=== PATIENT | female | born 1960 | race Caucasian/White ===

== ENCOUNTER 2019-06-17 15:39 | Emergency (ER) | payer OTHER ==
[2019-06-17] MEDS ORDERED: Sodium Chloride 0.9% 10 ML Syringe FLUSH PRN ×2 (15:47→21:21)
--- NOTE | 2019-06-17 15:49 | EDM.PDOC ---
<Tracy Mitchell - Last Filed: 06/17/19 17:01> ED HPI GENERAL MEDICAL PROBLEM - General Chief Complaint: Headache Stated Complaint: STROKE SYMPTOMS Time Seen by Provider: 06/17/19 15:49 Source of Information: Reports: Patient History Limitations: Reports: No Limitations - History of Present Illness INITIAL COMMENTS - FREE TEXT/NARRATIVE: pt has a severe headache on the rt side. She has had a past history of migraines but she has not any for a long time. This started yesterday and has gotten progrssively worse. Her vision is ok. She is nauseated but she has not vomited. Onset: Other ( started last nite. ) Duration: Hour(s): Location: Reports: Head Associated Symptoms: Reports: Headaches, Nausea/Vomiting, Other (pt developed the headache last nite and it has gotten worse through the day. She is nauseated but has not vomited. ) Right Headache Pain Score (Numeric/FACES): 10 - Related Data Allergies Allergy/AdvReac Type Severity Reaction Status Date / Time No Known Allergies Allergy Verified 06/17/19 15:53 Home Meds: Home Meds NK [No Known Home Meds] 06/17/19 [History] ED ROS GENERAL - Review of Systems Review Of Systems: See Below Constitutional: Reports: No Symptoms HEENT: Reports: Other (pt arrived with a very severe rt sided headache. ) Respiratory: Reports: No Symptoms Cardiovascular: Reports: No Symptoms Endocrine: Reports: No Symptoms GI/Abdominal: Reports: Nausea Musculoskeletal: Reports: No Symptoms Skin: Reports: No Symptoms Neurological: Reports: Headache, Other (pt is nauseated. ) Psychiatric: Reports: No Symptoms Hematologic/Lymphatic: Reports: No Symptoms - Physical Exam Exam: See Below Text/Narrative:: pt arrived with a severe rt sided headache over the rt eye. She is nauseated. This did staert last nite. Exam Limited By: No Limitations General Appearance: Alert, Anxious, Moderate Distress, Other (pupils are equal and reactive. ) Ears: Normal TMs Nose: Normal Inspection Throat/Mouth: Normal Inspection Head Exam: Atraumatic Neck: Normal Inspection Respiratory/Chest: No Respiratory Distress Cardiovascular: Regular Rate, Rhythm GI/Abdominal: Soft, Non-Tender (Female) Exam: Deferred Rectal (Female) Exam: Deferred Neuro Exam (Abbreviated): Alert, Oriented, Normal Cognition, Other ( very uncomfortable appearing. ) Back Exam: Normal Inspection Extremities: Normal Inspection Psychiatric: Anxious Course - Vital Signs Last Recorded V/S: Last Vital Signs Temp 100.4 F 06/17/19 20:14 Pulse 71 06/17/19 20:33 Resp 16 06/17/19 18:31 BP 96/42 L 06/17/19 20:33 Pulse Ox 95 06/17/19 20:33 - Orders/Labs/Meds Orders: Active Orders 24 hr Category Date Time Status CULTURE CSF + SMEAR [RM] Routine Lab 06/17/19 20:05 Results Iopamidol [Isovue-370 (76%)] Med 06/17/19 21:30 Active 100 ml IV . DIRECTED Sodium Chloride 0.9% [Normal Saline] 1,000 ml Med 06/17/19 16:45 Active IV ASDIRECTED Sodium Chloride 0.9% [Normal Saline] 1,000 ml Med 06/17/19 20:00 Active IV ASDIRECTED Sodium Chloride 0.9% [Normal Saline] 80 ml Med 06/17/19 21:30 Active IV ASDIRECTED Sodium Chloride 0.9% [Saline Flush] Med 06/17/19 15:47 Active 10 ml FLUSH ASDIRECTED PRN Sodium Chloride 0.9% [Saline Flush] Med 06/17/19 21:21 Active 10 ml FLUSH ASDIRECTED PRN Saline Lock Insert [OM.PC] Routine Oth 06/17/19 15:47 Ordered Medication Orders Sodium Chloride (Normal Saline) 1,000 mls @ 999 mls/hr IV ASDIRECTED NEHEMIAH Last Admin: 06/17/19 16:53 Dose: 999 mls/hr Sodium Chloride (Normal Saline) 1,000 mls @ 250 mls/hr IV ASDIRECTED NEHEMIAH Last Admin: 06/17/19 19:40 Dose: 250 mls/hr Sodium Chloride (Normal Saline) 80 mls @ 3 mls/sec IV ASDIRECTED NEHEMIAH Last Admin: 06/17/19 21:46 Dose: 3 mls/sec Iopamidol (Isovue-370 (76%)) 100 ml IV . DIRECTED NEHEMIAH Last Admin: 06/17/19 21:46 Dose: 100 ml Sodium Chloride (Saline Flush) 10 ml FLUSH ASDIRECTED PRN PRN Reason: Keep Vein Open Last Admin: 06/17/19 15:52 Dose: 10 ml Sodium Chloride (Saline Flush) 10 ml FLUSH ASDIRECTED PRN PRN Reason: Keep Vein Open Last Admin: 06/17/19 21:46 Dose: 10 ml Labs: Laboratory Tests 06/17/19 06/17/19 06/17/19 Range/Units 15:48 15:48 20:05 WBC 7.8 (4.5-11.0) K/uL RBC 5.11 (3.30-5.50) M/uL Hgb 15.7 H (12.0-15.0) g/dL Hct 45.9 (36.0-48.0) % MCV 90 (80-98) fL MCH 31 (27-31) pg MCHC 34 (32-36) % Plt Count 359 (150-400) K/uL Neut % (Auto) 43 (36-66) % Lymph % (Auto) 45 H (24-44) % Gulf % (Auto) 9 H (2-6) % Eos % (Auto) 3 (2-4) % Baso % (Auto) 1 (0-1) % Sodium (140-148) mmol/L Potassium (3.6-5.2) mmol/L Chloride (100-108) mmol/L Carbon Dioxide (21-32) mmol/L Anion Gap (5.0-14.0) mmol/L BUN (7-18) mg/dL Creatinine (0.6-1.0) mg/dL Est Cr Clr Drug Dosing mL/min Estimated GFR (MDRD) (>60) BUN/Creatinine Ratio Glucose (74-106) mg/dL Calcium (8.5-10.1) mg/dL Total Bilirubin (0.2-1.0) mg/dL AST (15-37) U/L ALT (12-78) U/L Alkaline Phosphatase (46-116) U/L Total Protein (6.4-8.2) g/dL Albumin (3.4-5.0) g/dL Globulin (2.3-3.5) g/dL Albumin/Globulin Ratio (1.2-2.2) CSF Tube Number CSF Volume mls CSF Appearance (CLEAR) CSF Color (COLORLESS) CSF WBC (0-5) /ul CSF RBC (0-0) /ul CSF Mononuclear Cells (54-100) % CSF Polymorphonuclear (0-7) % CSF Diff Comment CSF Glucose 58 (40-70) mg/dL CSF Total Protein 36.1 (15-45) mg/dL 06/17/19 06/17/19 06/17/19 Range/Units 20:05 21:03 21:03 WBC (4.5-11.0) K/uL RBC (3.30-5.50) M/uL Hgb (12.0-15.0) g/dL Hct (36.0-48.0) % MCV (80-98) fL MCH (27-31) pg MCHC (32-36) % Plt Count (150-400) K/uL Neut % (Auto) (36-66) % Lymph % (Auto) (24-44) % Gulf % (Auto) (2-6) % Eos % (Auto) (2-4) % Baso % (Auto) (0-1) % Sodium (140-148) mmol/L Potassium (3.6-5.2) mmol/L Chloride (100-108) mmol/L Carbon Dioxide (21-32) mmol/L Anion Gap (5.0-14.0) mmol/L BUN (7-18) mg/dL Creatinine (0.6-1.0) mg/dL Est Cr Clr Drug Dosing mL/min Estimated GFR (MDRD) (>60) BUN/Creatinine Ratio Glucose (74-106) mg/dL Calcium (8.5-10.1) mg/dL Total Bilirubin (0.2-1.0) mg/dL AST (15-37) U/L ALT (12-78) U/L Alkaline Phosphatase (46-116) U/L Total Protein (6.4-8.2) g/dL Albumin (3.4-5.0) g/dL Globulin (2.3-3.5) g/dL Albumin/Globulin Ratio (1.2-2.2) CSF Tube Number 3 1 2 CSF Volume mls CSF Appearance Clear Clear Clear (CLEAR) CSF Color Colorless Colorless Colorless (COLORLESS) CSF WBC 0 4 1 (0-5) /ul CSF RBC 0 13 H 3 H (0-0) /ul CSF Mononuclear Cells 0 L 0 L 0 L (54-100) % CSF Polymorphonuclear 0 100 H 100 H (0-7) % CSF Diff Comment CSF Glucose (40-70) mg/dL CSF Total Protein (15-45) mg/dL 06/17/19 Range/Units 21:04 WBC (4.5-11.0) K/uL RBC (3.30-5.50) M/uL Hgb (12.0-15.0) g/dL Hct (36.0-48.0) % MCV (80-98) fL MCH (27-31) pg MCHC (32-36) % Plt Count (150-400) K/uL Neut % (Auto) (36-66) % Lymph % (Auto) (24-44) % Gulf % (Auto) (2-6) % Eos % (Auto) (2-4) % Baso % (Auto) (0-1) % Sodium (140-148) mmol/L Potassium (3.6-5.2) mmol/L Chloride (100-108) mmol/L Carbon Dioxide (21-32) mmol/L Anion Gap (5.0-14.0) mmol/L BUN (7-18) mg/dL Creatinine (0.6-1.0) mg/dL Est Cr Clr Drug Dosing mL/min Estimated GFR (MDRD) (>60) BUN/Creatinine Ratio Glucose (74-106) mg/dL Calcium (8.5-10.1) mg/dL Total Bilirubin (0.2-1.0) mg/dL AST (15-37) U/L ALT (12-78) U/L Alkaline Phosphatase (46-116) U/L Total Protein (6.4-8.2) g/dL Albumin (3.4-5.0) g/dL Globulin (2.3-3.5) g/dL Albumin/Globulin Ratio (1.2-2.2) CSF Tube Number 4 CSF Volume mls CSF Appearance Clear (CLEAR) CSF Color Colorless (COLORLESS) CSF WBC 0 (0-5) /ul CSF RBC 0 (0-0) /ul CSF Mononuclear Cells 0 L (54-100) % CSF Polymorphonuclear 0 (0-7) % CSF Diff Comment CSF Glucose (40-70) mg/dL CSF Total Protein (15-45) mg/dL Meds: Medications Generic Name Dose Route Start Last Admin Trade Name Freq PRN Reason Stop Dose Admin Sodium Chloride 1,000 mls @ 999 mls/hr 06/17/19 16:45 06/17/19 16:53 Normal Saline IV 999 mls/hr ASDIRECTED NEHEMIAH Administration Sodium Chloride 1,000 mls @ 250 mls/hr 06/17/19 20:00 06/17/19 19:40 Normal Saline IV 250 mls/hr ASDIRECTED NEHEMIAH Administration Sodium Chloride 80 mls @ 3 mls/sec 06/17/19 21:30 06/17/19 21:46 Normal Saline IV 3 mls/sec ASDIRECTED NEHEMIAH Administration Iopamidol 100 ml 06/17/19 21:30 06/17/19 21:46 Isovue-370 (76%) IV 100 ml . DIRECTED NEHEMIAH Administration Sodium Chloride 10 ml 06/17/19 15:47 06/17/19 15:52 Saline Flush FLUSH 10 ml ASDIRECTED PRN Administration Keep Vein Open Sodium Chloride 10 ml 06/17/19 21:21 06/17/19 21:46 Saline Flush FLUSH 10 ml ASDIRECTED PRN Administration Keep Vein Open Discontinued Medications Generic Name Dose Route Start Last Admin Trade Name Freq PRN Reason Stop Dose Admin Diphenhydramine HCl 50 mg 06/17/19 16:40 06/17/19 16:54 Benadryl IVPUSH 06/17/19 16:41 50 mg ONETIME ONE Administration Hydromorphone HCl 0.5 mg 06/17/19 16:00 06/17/19 16:07 Dilaudid IVPUSH 06/17/19 16:01 0.5 mg ONETIME ONE Administration Hydromorphone HCl 1 mg 06/17/19 18:11 06/17/19 18:24 Dilaudid IVPUSH 06/17/19 18:12 1 mg ONETIME ONE Administration Ketorolac Tromethamine 30 mg 06/17/19 16:40 06/17/19 16:55 Toradol IVPUSH 06/17/19 16:41 30 mg ONETIME ONE Administration Lorazepam 0.5 mg 06/17/19 16:41 06/17/19 16:56 Ativan IVPUSH 06/17/19 16:42 0.5 mg ONETIME ONE Administration Ondansetron HCl 4 mg 06/17/19 15:52 06/17/19 15:56 Zofran IVPUSH 06/17/19 15:53 4 mg ONETIME ONE Administration - Re-Assessments/Exams Free Text/Narrative Re-Assessment/Exam: 06/17/19 17:01 lab work appears normal . She had a cat scan of the head since this was the worst headache she ever had. The cat scan proved to be normal. Departure - Departure Disposition: Home, Self-Care 01 Clinical Impression: Headache Qualifiers: Headache type: unspecified Headache chronicity pattern: acute headache Intractability: not intractable Qualified Code(s): R51 - Headache - Discharge Information Instructions: General Headache Without Cause, [id number] Referrals: PCP,None [Primary Care Provider] - Forms: ED Department Discharge Additional Instructions: Use Percocet as needed for pain control please followup with your primary care provider in 2-3 days if not better, please call return to the emergency department with worsening of symptoms. Sepsis Event Note - Focused Exam Vital Signs: Vital Signs Temp Pulse Resp BP Pulse Ox 06/17/19 20:33 71 96/42 L 95 06/17/19 20:14 100.4 F 71 110/50 L 96 06/17/19 19:42 73 116/67 97 06/17/19 19:02 84 133/66 06/17/19 18:31 98.9 F 85 16 135/66 95 06/17/19 17:59 78 127/103 H 95 06/17/19 17:06 62 207/103 H 96 06/17/19 16:43 60 198/87 H 97 06/17/19 16:14 63 165/69 H 100 06/17/19 15:45 97.3 F 70 20 182/95 H 99 Date Exam was Performed: 06/17/19 Time Exam was Performed: 17:01 - My Orders Last 24 Hours: My Active Orders 06/17/19 20:00 Sodium Chloride 0.9% [Normal Saline] 1,000 ml IV ASDIRECTED 06/17/19 20:05 CULTURE CSF + SMEAR [RM] Routine 06/17/19 21:21 Sodium Chloride 0.9% [Saline Flush] 10 ml FLUSH ASDIRECTED PRN 06/17/19 21:30 Iopamidol [Isovue-370 (76%)] 100 ml IV . DIRECTED Sodium Chloride 0.9% [Normal Saline] 80 ml IV ASDIRECTED - Assessment/Plan Last 24 Hours: My Active Orders 06/17/19 20:00 Sodium Chloride 0.9% [Normal Saline] 1,000 ml IV ASDIRECTED 06/17/19 20:05 CULTURE CSF + SMEAR [RM] Routine 06/17/19 21:21 Sodium Chloride 0.9% [Saline Flush] 10 ml FLUSH ASDIRECTED PRN 06/17/19 21:30 Iopamidol [Isovue-370 (76%)] 100 ml IV . DIRECTED Sodium Chloride 0.9% [Normal Saline] 80 ml IV ASDIRECTED <OfficerAneesh - Last Filed: 06/17/19 22:46> Course - Re-Assessments/Exams Free Text/Narrative Re-Assessment/Exam: Took over care from Dr. Mitchell at 1900 patient has received a variety of pain medication without any relief states her headache is still 8 out of 10 she still is hypertensive did admit to having a chiropractic procedure earlier today with a neck adjustment. I discussed the need for lumbar puncture to rule out intracranial hemorrhage she is in agreement contacted anesthesia for assistance 06/17/19 18:56 06/17/19 21:15 Lumbar puncture reveals RBCs tube 1 of 13, tube 2 of 3 tubes 3 of 0, she continues to rate her pain 6 out of 10 has gotten minimal relief from the combination of Toradol and narcotics she complains of some ongoing neck pain that got worse today at 230 had her chiropractic procedure with neck maneuvers earlier in the day, will proceed with CTA of the head neck and general imaging of the cervical spine Departure - Departure Time of Disposition: 22:44 Condition: Fair Sepsis Event Note - Focused Exam Date Exam was Performed: 06/17/19 Time Exam was Performed: 22:42 - My Orders Last 24 Hours: My Active Orders 06/17/19 20:00 Sodium Chloride 0.9% [Normal Saline] 1,000 ml IV ASDIRECTED 06/17/19 20:05 CULTURE CSF + SMEAR [RM] Routine 06/17/19 21:21 Sodium Chloride 0.9% [Saline Flush] 10 ml FLUSH ASDIRECTED PRN 06/17/19 21:30 Iopamidol [Isovue-370 (76%)] 100 ml IV . DIRECTED Sodium Chloride 0.9% [Normal Saline] 80 ml IV ASDIRECTED - Assessment/Plan Last 24 Hours: My Active Orders 06/17/19 20:00 Sodium Chloride 0.9% [Normal Saline] 1,000 ml IV ASDIRECTED 06/17/19 20:05 CULTURE CSF + SMEAR [RM] Routine 06/17/19 21:21 Sodium Chloride 0.9% [Saline Flush] 10 ml FLUSH ASDIRECTED PRN 06/17/19 21:30 Iopamidol [Isovue-370 (76%)] 100 ml IV . DIRECTED Sodium Chloride 0.9% [Normal Saline] 80 ml IV ASDIRECTED Plan: Assessment Acuity = acute Site and laterality = headache Etiology = unknown suspicious for underlying migraine Manifestations = none Location of injury = Home Lab values = CBC, CMP unremarkable CT scan of the head shows no acute process CTA head and neck shows no dissection, cervical spine also no acute process Plan She underwent lumbar puncture which showed minimal RBCs in the tubes collected that was decreasing both protein and glucose were within normal limits. She had some improvement with the variety medications that were given rating her headache a 5 out of 10, plans discharge home Percocet 5/325 1 tab p.o. 3 times daily PRN total #10 she will follow-up primary care in the next 2 to 3 days if not better This note was dictated using [employer] voice recognition software please call with any questions on syntax or grammar.
[2019-06-17] MEDS ORDERED: Ondansetron 4 MG/2 ML SDV IVPUSH ONE (15:52)
[2019-06-17] MEDS ORDERED: HYDROmorphone 0.5 MG/0.5 ML Syringe IVPUSH ONE (16:00)
[2019-06-17] MEDS ORDERED: diphenhydrAMINE 50 MG/ML SDV IVPUSH ONE (16:40)
[2019-06-17] MEDS ORDERED: Ketorolac 30 MG/ML SDV IVPUSH ONE (16:40)
[2019-06-17] MEDS ORDERED: LORazepam 2 MG/ML SDV IVPUSH ONE (16:41)
[2019-06-17] MEDS ORDERED: Sodium Chloride 0.9% 1,000 ML IV SCH ×2 (16:45→20:00)
--- NOTE | 2019-06-17 16:56 | CRLCT ---
Indication: Severe right-sided headaches. Technique: CT of the head without contrast. Coronal and sagittal reformats. Bone and soft tissue windows. Comparison: No prior studies available for comparison at this institution. Findings: No acute intracranial hemorrhage or extra-axial collection. No evidence of acute cortical infarction. No mass effect or midline shift. Normal cerebral volume. The ventricles are normal in size, shape and contour. There is normal pete and white matter differentiation. The orbital contents are normal. No calvarial fractures. No lytic or sclerotic osseous lesions within the calvarium or skull base. Scalp and other imaged soft tissue structures are normal. Mastoid air cells are clear. Paranasal sinuses are well aerated. Impression: No acute intracranial abnormality. Please note that all CT scans at this facility use dose modulation, iterative reconstruction, and/or weight-based dosing when appropriate to reduce radiation dose to as low as reasonably achievable. Dictated by Afshin Walker MD @ Jun 17 2019 4:51PM Signed by Dr. Afshin Walker @ Jun 17 2019 4:54PM
[2019-06-17] MEDS ORDERED: HYDROmorphone 1 MG/ML Syringe IVPUSH ONE (18:11)
[2019-06-17] MEDS ORDERED: Sodium Chloride 0.9% 80 ML IV SCH (21:30)
[2019-06-17] MEDS ORDERED: Iopamidol 755 Mg/ML 100 ML Bottle IV SCH (21:30)
--- NOTE | 2019-06-17 21:36 | ANES ---
DATE OF SERVICE: 06/17/2019 Kiki is a 58-year-old female patient in our emergency department with Dr. Cher. She is in the emergency room with an irretractable headache, and I was asked to consult the patient for a lumbar puncture. Upon arrival, I find a 58-year-old female patient, continued headache. I explained with her the procedure as well as the risks. She was okay to proceed. Consent was received. I had her in a lateral position. Betadine prep x3 to the lumbar region. A sterile drape was placed. A 1% lidocaine skin wheal as well as deep over the L3-L4 region. A 25-gauge spinal needle was placed with an introducer. Positive CSF. I monitored 19 to 20 at the cervical spinal pressure. I reported that to Officer. I then collected 4 vials with 2 mL in each. Each was clear as the first. The needle was then removed. The drape was removed. Her back was washed and a Band-Aid over the injection site. She tolerated the procedure quite well. Please refer to the nurse's notes for vital signs and neuro status, which were unchanged, and I reported off to the nurses as well. Roosevelt Mistry CRNA /[id number]
--- NOTE | 2019-06-17 22:25 | CRLCT ---
INDICATION: Headache, neck pain. TECHNIQUE: High resolution axial CT images acquired through the head and neck following rapid intravenous administration of iodinated contrast. Multiplanar MIPS of cranial and cervical vasculature performed. COMPARISON: Noncontrast head CT 06/17/2019. FINDINGS: CTA head: There is normal filling of the intracranial vasculature; i.e. there is no large vessel occlusion or significant intracranial stenosis. There is no cerebral aneurysm or evidence for vascular malformation. CTA neck: There is no carotid or vertebral artery stenosis or dissection. Small indeterminate hypodense nodules are incidentally noted in the thyroid. The soft tissues of the neck are otherwise within normal limits. The cervical spine is in normal alignment. Degenerative changes are noted in the cervical spine. The lung apices are clear. IMPRESSION: Unremarkable CTA head and neck. Taiwo Shoemaker MD [employer] [facility] Please note that all CT scans at this facility use dose modulation, iterative reconstruction, and/or weight-based dosing when appropriate to reduce radiation dose to as low as reasonably achievable. Dictated by Taiwo Shoemaker MD @ Jun 18 2019 8:20AM Signed by Dr. Taiwo Shoemaker @ Jun 18 2019 8:20AM
--- NOTE | 2019-06-17 22:25 | CRLCT ---
INDICATION: Headache, neck pain. TECHNIQUE: High resolution axial CT images acquired through the head and neck following rapid intravenous administration of iodinated contrast. Multiplanar MIPS of cranial and cervical vasculature performed. COMPARISON: Noncontrast head CT 06/17/2019. FINDINGS: CTA head: There is normal filling of the intracranial vasculature; i.e. there is no large vessel occlusion or significant intracranial stenosis. There is no cerebral aneurysm or evidence for vascular malformation. CTA neck: There is no carotid or vertebral artery stenosis or dissection. Small indeterminate hypodense nodules are incidentally noted in the thyroid. The soft tissues of the neck are otherwise within normal limits. The cervical spine is in normal alignment. Degenerative changes are noted in the cervical spine. The lung apices are clear. IMPRESSION: Unremarkable CTA head and neck. Taiwo Shoemaker MD [facility]interventional [employer] [facility] Please note that all CT scans at this facility use dose modulation, iterative reconstruction, and/or weight-based dosing when appropriate to reduce radiation dose to as low as reasonably achievable. Dictated by Taiwo Shoemaker MD @ Jun 18 2019 8:16AM Signed by Dr. Taiwo Shoemaker @ Jun 18 2019 8:19AM
== END 2019-06-17 23:10 | disposition home or self-care (01) ==
LOC: JP.ED 15:39
DX: R51 Headache (principal)
CPT/HCPCS: 36415; 62270; 70450; 70496; 70498; 80053; 82945; 84157; 85025; 87070; 87205; 89050; 96374; 96375; 96376; 99284; J1170; J1200; J1885; J2060; J2405; J7030; J7050; Q9967